=== PATIENT | female | born 1965 | race African-American/Black ===

== ENCOUNTER 2022-01-05 18:38 | Emergency (ER) | payer OTHER, SELFPAY ==
[2022-01-05] VITALS (23 sets, daily range): BP systolic 115–150; BP diastolic 65–85; PULSE 73–95; RESP 13–25; TEMP 36.1; O2SAT 98–100
--- NOTE | ~2022-01-05 | CT_ITS ---
EXAMINATION: CT abdomen pelvis w con DATE: 01/05/2022 21:16 INDICATION: N/V/D, RUQ/epig/RLQ tend TECHNIQUE: Computed tomography (CT) of the abdomen and pelvis was performed with 100 mL Omnipaque-300 intravenous contrast. Automated exposure control and iterative reconstruction technique were employe d. The dose-length product was 1347.27 mGy-cm. COMPARISON: None. FINDINGS: Lower thorax: Unremarkable Liver: Normal. Biliary/Gallbladder: Gallbladder is normal. No bile duct dilation. Pancreas: No mass or duct dilation. Spleen: Normal. Adrenals:No mass. Kidneys: No mass, stone, or hydronephrosis. GI tract: No small or large bowel dilation. Normal appendix. Mild water density wall thickening in th e ascending colon and descending colon. Mesentery/Peritoneum: No ascites, mass, or free air. Retroperitoneum: No mass. Pelvis: Pelvic organs are within normal limits. Soft Tissues: Soft tissues and body wall unremarkable. Bones: No acute osseous finding. IMPRESSION: Colonic findings may reflect colitis in the appropriate clinical context, likely on an infectious or inflammatory basis. Reviewed, dictated and finalized at location K. IMPRESSION: Colonic findings may reflect colitis in the appropriate clinical context, likel y on an infectious or inflammatory basis.
[2022-01-05 19:05] LABS: Basophils Percent Auto 0.3 % (0.2-1.2); Eosinophils Absolute Auto 0.1 K/mm3 (0-0.3); Eosinophils Percent Auto 3.3 % (0-4.4); Hematocrit 40.1 % (37.0-47.0); Hemoglobin 12.3 g/dL (12.0-15.0); Immature Granulocyte Absolute 0.01 K/mm3 (0.00-0.031); Immature Granulocyte Percent A 0.3 % (0-0.5); Lymphocytes Absolute Auto 1.23 K/mm3 (0.9-3.2); Lymphocytes Percent Auto 40.9 % (18.3-44.2); Mean Corpuscular HGB Conc 30.7 g/dl (32-36); Mean Platelet Volume 9.6 fl (7.4-10.4); Monocytes Absolute Auto 0.5 K/mm3 (0.1-0.6); Monocytes Percent Auto 15.6 % (2.6-8.5); Neutrophils Absolute Auto 1.2 K/mm3 (1.3-6.7); Neutrophils Percent Auto 39.6 % (45.5-73.1); Platelet Count Result 197 k/mm3 (150-375); Red Blood Count 3.97 M/mm3 (4.2-5.4); Red Cell Distribution Width 14.2 % (11.5-14.5)
[2022-01-05 19:42] LABS: Alanine Aminotransferase 24 U/L (6-35); Alkaline Phosphatase 94 U/L (38-126); Anion Gap 5 mmol/L (8-16); Aspartate Amino Transferase 31 U/L (14-36); Bilirubin,Total 0.3 mg/dL (0.2-1.3); Blood Urea Nitrogen 16 mg/dL (7-17); Calcium 8.8 mg/dL (8.4-10.2); Carbon Dioxide 25 mmol/L (22-30); Chloride 109 mmol/L (98-107); Estimated CRCL calculation 63 ml/min; Estimated Glomerular Filt Rate > 60; Glucose 119 mg/dL (65-110); Lipase 72 U/L (23-300); Potassium 3.9 mmol/L (3.4-5.0); Sodium 139 mmol/L (137-145)
--- NOTE | 2022-01-05 20:22 | ECG_ITS ---
Measurements Intervals [place] Rate: 79 P: 59 AK: 139 QRS: 68 QRSD: 78 T: 65 QT: 368 QTc: 423 Interpretive Statements SINUS RHYTHM POSSIBLE LEFT ATRIAL ENLARGEMENT POSSIBLE LEFT VENTRICULAR HYPERTROPHY BORDERLINE ECG Electronically Signed On 01-06-2022 6:14:32 CDT by Yared Bautista D.O.
--- NOTE | 2022-01-05 20:29 | ED.NAVMDI ---
HPI - Nausea/Vomiting/Diarrhea General Chief complaint: Nausea/Vomiting/Diarrhea <BRANDIE Cabrera Last Filed: 01/06/22 03:50> Stated complaint: diarrhea, black stools <BRANDIE Cabrera Last Filed: 01/06/22 03:50> Time Seen by Provider: 01/05/22 20:03 <BRANDIE Cabrera Last Filed: 01/06/22 03:50> Source: patient <BRANDIE Cabrera Last Filed: 01/06/22 03:50> Mode of arrival: ambulatory <BRANDIE Cabrera Last Filed: 01/06/22 03:50> Limitations: no limitations <BRANDIE Cabrera Last Filed: 01/06/22 03:50> History of Present Illness HPI Narrative: Patient is a 56-year-old female who presents the ED with report of N/V/D. She reports she began to feel unwell on Tuesday with muscle aches. She developed diarrhea that night. She then developed nausea and vomiting yesterday. She has not had any vomiting today, but does report feeling persistently nauseous. She also reports having diffuse ABD cramping, subjective fever with chills and sweats, rhinorrhea, and a mild cough. She did take one capful of Pepto Bismol and noticed her stool being black the next day. Denies any bright red rectal bleeding. Denies any congestion, difficulty breathing. She does mention having intermittent left-sided chest pressure, lasting a few seconds at a time, occurring sporadically, 1 to 2 weeks ago. Denies any chest pain currently. No recent sick contacts or family worse with similar symptoms. She is vaccinated for COVID, but not the flu. Patient was seen at an outside urgent care earlier today and prescribed nausea medicine. She has not picked this up from the pharmacy yet. <BRANDIE Cabrera Last Filed: 01/06/22 03:50> Related Data Allergies/Adverse reactions: Allergies Allergy/AdvReac Type Severity Reaction Status Date / Time No Known Allergies Allergy Unverified 08/11/17 09:25 <BRANDIE Cabrera Last Filed: 01/06/22 03:50> Review of Systems Review of Systems: CONSTITUTIONAL: Reports subjective fever, chills, and sweats. ENT: Reports rhinorrhea. Denies congestion. CARDIOVASCULAR: Reports intermittent left-sided chest pressure. RESPIRATORY: Reports mild cough. Denies dyspnea. GASTROINTESTINAL: Reports diffuse ABD cramping, nausea, vomiting, melena, diarrhea. Denies bright red rectal bleeding. GENITOURINARY: Denies dysuria or hematuria. SKIN: Denies rash or itching. MUSCULOSKELETAL: Reports myalgias. NEUROLOGIC: Denies headache, numbness, or weakness. <Juany Schulte PA-C - Last Filed: 01/06/22 03:50> All systems reviewed & are unremarkable except as noted in HPI and below <Juany Schulte PA-C - Last Filed: 01/06/22 03:50> PMFSH Past Medical History Medical History: Medical History Anxiety Arthritis Depression <Juany Schulte PA-C - Last Filed: 01/06/22 03:50> Surgical History Surgical History: Surgical History (Updated 01/05/22 @ 23:26 by Juany cShulte PA-C) No pertinent past surgical history <Juany Schulte PA-C - Last Filed: 01/06/22 03:50> Social History Social History: Social History (Updated 01/05/22 @ 23:26 by Juany Schulte PA-C) Smoking status: Never smoker <Juany Schulte PA-C - Last Filed: 01/06/22 03:50> Exam Narrative: GENERAL: Well appearing, well-nourished, non-toxic, in no acute distress. HEAD: Normocephalic, atraumatic. THROAT: Pharynx clear, no exudate. MMs moist. NECK: Supple. No adenopathy, no masses. RESPIRATORY: Airway patent, respirations nonlabored. Clear to auscultation bilaterally, no rales, rhonchi, wheezing. CARDIOVASCULAR: Regular rate and rhythm without murmurs, rubs, or gallops. Peripheral pulses 2+ and equal bilaterally. ABDOMINAL: Soft, diffuse tenderness to palpation, worst in epigastric/RUQ regions, nondistended, no hepatosplenomegaly. Normoactive BS. RECTAL: Normal tone. No external or internal hemorrhoids appreciated on ex
[2022-01-05] MEDS: ONDANSETRON INJ 4 MG/2 ML VIAL IV PUSH (20:38)
[2022-01-05] MEDS: SODIUM CHLORIDE 0.9% IV 1,000 ML 999 ML IV CONT (20:38)
[2022-01-05 20:54] LABS: Appearance Urine Slightly Cloudy (Clear); Bilirubin Urine Negative (Negative); Blood Urine Negative (Negative); Color Urine Yellow (Yellow); Glucose Urine UA Negative (Negative); Ketones Urine Trace mg/dL (Negative); Leukocyte Esterase Ur Trace LEU/UL (Negative); Nitrate Urine Negative (Negative); Protein Urine Negative (Negative); Specific Grav Ur >= 1.030 (1.001-1.035); Urobilinogen Urine 0.2 mg/dL (<2.0); pH Urine 5.5 (5.0-9.0)
[2022-01-05 21:00] LABS: Bacteria Urine Trace /hpf; Mucus Urine Rare /lpf; RBC Urine 0-2 /hpf (0-2); Squamous Epithelial Cell Urine Many /hpf (Few); WBC Urine 0-3 /hpf
[2022-01-05 21:03] LABS: Add Urine Microscopic? YES
[2022-01-05 21:04] LABS: Troponin I < 0.012 ng/mL (0.000-0.034)
[2022-01-05 21:27] LABS: Influenza A QL RT-PCR Negative (Negative); Influenza B QL RT-PCR Negative (Negative); SARS-CoV-2 RNA PCR Negative
== END 2022-01-05 23:23 | disposition home or self-care (01) ==
PROVIDERS: Emergency Medicine; Physician Assistant; Emergency Provider Emergency Medicine; PCP Physician Assistant
DX: K52.9 Noninfective gastroenteritis and colitis, unspecified (principal); D72.819 Decreased white blood cell count, unspecified; Z20.822 Contact with and (suspected) exposure to COVID-19; M19.90 Unspecified osteoarthritis, unspecified site; R94.31 Abnormal electrocardiogram [ECG] [EKG]
CPT/HCPCS: 36415; 74177; 80053; 81001; 83690; 84484; 85025; 87502; 93005; 96361; 96374; 99284; C9803; J2405; J7030; Q9967; U0003; U0005

== ENCOUNTER 2022-02-03 06:29 | Observation (INO) | payer OTHER, SELFPAY ==
[2022-02-03] VITALS (25 sets, daily range): BP systolic 116–150; BP diastolic 64–96; PULSE 66–84; RESP 16–27; TEMP 36.3; O2SAT 99–100
--- NOTE | 2022-02-03 | ECHO_ITS ---
Patient Info Name: Grace Norris Age: 56 years : 1965 Gender: Female Ht: 66 in Wt: 248 lbs BSA: 2.34 m2 HR: 75 bpm BP: 139 / 77 mmHg Heart Rhythm: Sinus Rhythm Technical Quality: Fair Exam Date: 02/03/2022 4:38 PM Exam Location: [facility] Patient Status: Inpatient Admit Date: 02/03/2022 Staff Ordering Physician: Franklyn Boyce Hadoop Infrastructure Architect: Shira Marc RDCS Attending Provider: Sharon Abad DO Referring Physician: Austen WARD; Exam Type: CA echo dop color flow w con Study Info Indications R55 - Syncope and collapse Complete two-dimensional, color flow and Doppler transthoracic echocardiogram is performed with contrast to opacify the left ventricle and to improve the deliniation of the left ventricle endocardial borders. Contrast/Agitated Saline Contrast/Ag. Saline: Definity Amount: 3.00 ml Administered By: Shira Marc RDCS Existing IV Access: Yes IV Access Condition: patent with no signs of infiltration Summary 1. Left ventricular chamber dimension is normal. 2. Left ventricular systolic function is normal, estimated at 65-70%. 3. There is no increased left ventricular wall thickness. 4. The left ventricular diastolic function is grade I diastolic dysfunction. 5. There is mild tricuspid valve regurgitation. 6. No pulmonary hypertension, estimated pulmonary arterial systolic pressure is 25 mmHg. 7. There is trace mitral valve regurgitation. 8. There is no aortic valve stenosis. Left Ventricle Left ventricular chamber dimension is normal. Left ventricular systolic function is normal, estimated at 65-70%. There is no increased left ventricular wall thickness. The left ventricular diastolic function is grade I diastolic dysfunction. Right Ventricle Right ventricular chamber dimension is normal. Right ventricular systolic function is normal. Left Atria Left atrial chamber dimension is normal. Right Atria Right atrial chamber dimension is normal. Aortic Valve The aortic valve is trileaflet. There is no aortic valve stenosis. There is no aortic valve regurgitation. Pulmonic Valve The pulmonic valve is normal. There is mild pulmonic regurgitation. Mitral Valve The mitral valve has thickened leaflets. There is trace mitral valve regurgitation. Tricuspid Valve The tricuspid valve leaflets are normal. There is mild tricuspid valve regurgitation. No pulmonary hypertension, estimated pulmonary arterial systolic pressure is 25 mmHg. Pericardium/Pleural The pericardium appears normal. There is no pericardial effusion. Inferior Vena Cava Normal inferior vena cava with >50% collapse upon inspiration consistent with normal right atrial pressure, 5 mmHg. Aorta The aortic root size at the sinus of Valsalva is normal. The prox ascending aorta size is normal. There is mild aortic atherosclerosis. Left Ventricular Outflow Tract Name Value Normal LVOT 2D LVOT Diameter 1.97 cm LVOT Doppler LVOT Peak Gradient 5 mmHg LVOT Mean Gradient 2 mm
--- NOTE | ~2022-02-03 | XR_ITS ---
EXAMINATION: XR chest 1V DATE: 02/03/2022 07:28 INDICATION: Syncope. TECHNIQUE: A single frontal view of the chest was obtained. COMPARISON: Chest 2 views 08/11/2017 FINDINGS: The chest demonstrates clear lungs without pneumonia, pleural effusion, or pneumothorax. Th e heart size is normal. There are surgical clips in left axilla. IMPRESSION: 1. No acute cardiopulmonary disease. Reviewed, dictated and finalized at location A.
--- NOTE | ~2022-02-03 | XR_ITS ---
EXAMINATION: XR knee RT 3V DATE: 02/04/2022 13:26 INDICATION: Right knee pain. TECHNIQUE: 4 views of right knee were obtained. COMPARISON: None. FINDINGS: Bone alignment is normal. No fracture. There is mild tricompartmental osteoarthritis. There is a small knee joint effusion with loose body. There is a loose body in a Adame's cyst. IMPRESSION: 1. Mild right knee osteoarthritis. 2. Small right knee joint effusion with loose body. Reviewed, dictated and finalized at location A.
--- NOTE | ~2022-02-03 | US_ITS ---
EXAMINATION:US venous doppler LE RT INDICATION:Right leg pain TECHNIQUE: Multiple grayscale, color flow and Doppler images of the right lower extremity deep venous systems were obtained and reviewed. COMPARISON:No prior studies for comparison. FINDINGS: The common femoral, superficial femoral and popliteal veins demonstrate normal respiratory variation, augmentation and compressibility. Color flow is also seen within the posterior tibial, pe roneal, greater saphenous and profunda veins. There is a Adame's cyst measuring 3.9 x 1.5 x 0.7 cm IMPRESSION: 1: No lower extremity deep venous thrombosis. Reviewed, dictated and finalized at location A.
--- NOTE | ~2022-02-03 | US_ITS ---
EXAMINATION: US carotid duplex BI DATE: 02/03/2022 17:54 INDICATION: Syncope. TECHNIQUE: Grayscale, color Doppler, and pulsed Doppler images of the cervical carotid arteries were obtained. The degree of vessel stenosis is placed in one of the following categories: normal, <50%, 5 0-69%, >=70% but less than near-occlusion, near-occlusion, or total occlusion. Note that percent sten osis relative to normal distal artery lumen diameter is indirectly measured from velocity measurement s as described by Mario, et al. Radiology 2003; 229:340-346. COMPARISON: Neck CT 02/03/2022 FINDINGS: RIGHT: The right common carotid artery (CCA) peak systolic velocity (PSV) is 79 cm/s. The right internal car otid artery (ICA) PSV is 177 cm/s. The right ICA end-diastolic velocity (EDV) is 51 cm/s. The right I CA/CCA PSV ratio is 22. Grayscale and color Doppler images yield an estimate of >=50% diameter reduct ion from plaque in the ICA. There is antegrade flow in the right vertebral artery. LEFT: The left CCA PSV is 85 cm/s. The left ICA PSV is 94 cm/s. The left ICA EDV is 25 cm/s. The left ICA/C CA PSV ratio is 1.1. Grayscale and color Doppler images yield an estimate of <50% diameter reduction from plaque in the ICA. There is antegrade flow in the left vertebral artery. IMPRESSION: 1. 50-69% stenosis in the right internal carotid artery. 2. <50% stenosis in the left internal carotid artery. Reviewed, dictated and finalized at location A.
--- NOTE | ~2022-02-03 | CT_ITS ---
EXAMINATION: CT brain wo con DATE: 02/03/2022 07:23 INDICATION: Headache. Dizziness. Near syncope. TECHNIQUE: Computed tomography (CT) of the head was performed without intravenous contrast. The mA wa s adjusted according to patient size. Iterative reconstruction technique was employed. The dose-lengt h product was 605.33 mGy-cm. COMPARISON: None FINDINGS: There is no intracranial hemorrhage, acute infarction, or abnormal intracranial mass lesion . There are scattered areas of low attenuation in the cerebral white matter. The ventricles are yaima l in size. There is mild mucosal thickening in the ethmoid sinuses. The mastoid air cells are normal. The orbits are normal. IMPRESSION: 1. Mild nonspecific cerebral white matter disease, which likely represents chronic small vessel ische morgan disease. Reviewed, dictated and finalized at location A. IMPRESSION: 1. 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
--- NOTE | ~2022-02-03 | XR_ITS ---
EXAMINATION: XR hip RT 2V w AP pelvis DATE: 02/03/2022 12:30 INDICATION: Sudden onset right lower limb pain. TECHNIQUE: Anteroposterior view of the pelvis and anteroposterior and frog-leg lateral views of the r ight hip were obtained. COMPARISON: CT dated 01/05/2022 FINDINGS: Bone alignment is normal. No fracture or suspected avascular necrosis. Decreased right femoral head n constantine offset. Bilateral hip joint spaces appear relatively preserved with tiny marginal osteophytes abo ut the femoral heads consistent with minimal osteoarthritis. Enthesophytes at the anterior iliac spin es and at the bilateral greater trochanters. Moderate to severe spondylosis at the lumbosacral juncti on better appreciated on prior CT. Large amount of excreted contrast material in the bladder and visu alized bilateral lower ureters likely resulting from the earlier contrast-enhanced brain and carotid CT angiogram. IMPRESSION: 1. Minimal bilateral hip osteoarthritis. No acute osseous abnormality. Reviewed, dictated and finalized at location A.
--- NOTE | ~2022-02-03 | MR_ITS ---
EXAMINATION: MR brain/brain stem wo con DATE: 02/04/2022 07:03 INDICATION: Syncope. Cerebral vascular accident. TECHNIQUE: Magnetic resonance imaging (MRI) of the brain and brainstem was performed without intraven ous contrast. COMPARISON: Head CT 02/03/2022 FINDINGS: There are scattered areas of nonspecific increased T2-weighted signal intensity in the cere bral white matter. There is no intracranial hemorrhage, acute infarction, or abnormal intracranial ma ss lesion. The ventricles are normal in size. The paranasal sinuses are clear. The orbits are normal. The mastoid air cells are normal. IMPRESSION: 1. Mild nonspecific cerebral white matter disease, which likely represents chronic small vessel ische morgan disease. Reviewed, dictated and finalized at location A. IMPRESSION: 1. Mild nonspecific cerebral white matter disease, which likely represents lining closer jimmy small vessel ischemic disease.
--- NOTE | ~2022-02-03 | CT_ITS ---
EXAMINATION: CT lumbar spine wo con DATE: 02/03/2022 12:06 INDICATION: Low back pain. Right foot numbness. TECHNIQUE: Computed tomography (CT) of the lumbar spine was performed without intravenous contrast. A utomated exposure control and iterative reconstruction technique were employed. The dose-length produ ct was 1275.45 mGy-cm. COMPARISON: None FINDINGS: There is 5 degrees levocurvature of lumbar spine. Vertebral body heights are normal. There is mildly decreased disc height at L3-L4 and moderately decreased disc height at L5-S1. Osseous centr al spinal canal is developmentally small in lumbar spine. The following disc levels are specifically discussed: L1-L2: The disc does not extend beyond the endplate margin. There is severe bilateral facet joint ost eoarthritis. There is no neural foraminal stenosis. There is no central canal stenosis. L2-L3: The disc is bulging. There is severe bilateral facet joint osteoarthritis. There is mild bilat eral neural foraminal stenosis. There is mild central canal stenosis. L3-L4: The disc is bulging. There is severe bilateral facet joint osteoarthritis. There is mild bilat eral neural foraminal stenosis. There is mild central canal stenosis. L4-L5: The disc is bulging. There is severe bilateral facet joint osteoarthritis. There is mild bilat eral neural foraminal stenosis. There is mild central canal stenosis. L5-S1: The disc is bulging. There is severe bilateral facet joint osteoarthritis. There is mild right and moderate left neural foraminal stenosis. There is mild central canal stenosis. IMPRESSION: 1. Moderate lower lumbar spondylosis. Reviewed, dictated and finalized at location A.
--- NOTE | ~2022-02-03 | CT_ITS ---
EXAMINATION: CTA brain carotid DATE: 02/03/2022 10:05 INDICATION: Presyncope. TECHNIQUE: Computed tomographic angiography (CTA) of the head was performed with 100 mL Omnipaque-350 intravenous contrast. CTA of the neck was performed with intravenous contrast. Automated exposure co ntrol and iterative reconstruction technique were employed. The dose-length product was 1074.64 mGy-c m. Maximum intensity projection and volume rendered 3D-reconstructions were created by the [employer] on a separate workstation. COMPARISON: Head CT 02/03/2022 FINDINGS: HEAD CTA: There are scattered areas of low attenuation in the cerebral white matter. There is no intr acranial hemorrhage, acute infarction, or abnormal intracranial mass lesion. The ventricles are yaima l in size. There is mild mucosal thickening in the paranasal sinuses. The mastoid air cells are yaima l. The orbits are normal. Left vertebral artery is dominant. There is no significant stenosis of basi lar artery or the posterior cerebral arteries. There is no significant stenosis of the intracranial i nternal carotid arteries or anterior or middle cerebral arteries. Anterior communicating artery is no rmal. The posterior communicating arteries are normal. There is no aneurysm. NECK CTA: There are no pathologically enlarged lymph nodes. There is no significant stenosis of the v ertebral arteries. There is plaque in the proximal internal carotid arteries. There is 64% stenosis o f the proximal right internal carotid artery relative to normal distal artery lumen diameter (NASCET criteria). There is 0% stenosis of the proximal left internal carotid artery relative to normal dista l artery lumen diameter. There is severe cervical spondylosis. IMPRESSION: 1. Mild nonspecific cerebral white matter disease, which likely represents chronic small vessel ische morgan disease. 2. No aneurysm or significant intracranial internal stenosis. 3. 64% stenosis of the proximal right internal carotid artery relative to normal distal artery lumen diameter (NASCET criteria). 4. 0% stenosis of the proximal left internal carotid artery relative to normal distal artery lumen di ameter. Reviewed, dictated and finalized at location A. IMPRESSION: 1. 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 2. No aneurysm or significant intracranial internal stenosis. 3. 64% stenosis of the proximal right internal carotid artery relative to ayima l distal artery lumen diameter (NASCET criteria). 4. 0% stenosis of the proximal left internal carotid artery relative to normal distal artery lumen diameter.
--- NOTE | ~2022-02-03 | MR_ITS ---
EXAMINATION: MR knee RT wo con DATE: 02/04/2022 15:50 INDICATION: Right knee pain. Right knee joint effusion. TECHNIQUE: Magnetic resonance imaging (MRI) of the right knee was performed without intravenous contr ast. Sequences included axial PD-weighted FS FSE, coronal PD-weighted FSE and PD-weighted FS FSE, sag ittal PD-weighted FSE, and sagittal T2-weighted FS FSE. COMPARISON: Right knee radiographs 02/04/2022 FINDINGS: Medial compartment: There is an upper surface horizontal tear of posterior horn of medial meniscus. There is shallow part ial-thickness cartilage loss of tibial condyle and femoral condyle. Osteophytes are noted. There is a n intraosseous ganglion in medial tibial condyle posteriorly. Lateral compartment: Lateral meniscus is normal. There is cartilage surface irregularity of tibial condyle and femoral con dyle. Osteophytes are noted. Patellofemoral compartment: There is full-thickness cartilage loss of patellar lateral facet with mild subchondral edema-like mar row signal intensity. There is deep cartilage fissuring of patellar medial facet. There is full-thick ness cartilage loss of lateral trochlea with mild subchondral edema-like marrow signal intensity. The re is partial-thickness cartilage loss of central and medial trochlea. Osteophytes are noted. Ligaments and tendons: The anterior and posterior cruciate ligaments are normal. There are changes of prior sprains of media l collateral ligament and fibular collateral ligament characterized by thickening and increased signa l intensity proximally. There is mild patellar tendinopathy. Fluid: There is a small knee joint effusion. There is a 14 mm loose body in suprapatellar bursa. There is an 11 mm loose body in the anterior intercondylar notch. There is a moderate-sized Adame's cyst with lo ose body. There is a 2.3 x 0.8 x 0.9 cm ganglion cyst in Hoffa's fat pad medially. IMPRESSION: 1. Severe chondrosis of patellofemoral compartment and mild chondrosis of medial and lateral compartm ents. 2. Tear of medial meniscus. 3. Small knee joint effusion with loose bodies. 4. Moderate-sized Adame's cyst with loose body. Reviewed, dictated and finalized at location A. IMPRESSION: 1. Severe chondrosis of patellofemoral compartment and mild chondrosis of media l and lateral compartments. 2. Tear of medial meniscus. 3. Small knee joint effusion with loose bodies. 4. Moderate-sized Adame's cyst with loose body.
--- NOTE | 2022-02-03 06:46 | ECG_ITS ---
Measurements Intervals [place] Rate: 75 P: 47 OR: 154 QRS: 56 QRSD: 81 T: 53 QT: 372 QTc: 416 Interpretive Statements SINUS RHYTHM WITH OCCASIONAL SUPRAVENTRICULAR PREMATURE COMPLEXES BORDERLINE ECG COMPARED TO ECG 01/05/2022 20:42:08 NO SIGNIFICANT CHANGES Electronically Signed On 02-03-2022 12:42:00 CDT by Mike Cabral M.D.
--- NOTE | 2022-02-03 07:21 | ED.GENADULT ---
HPI - General Adult General Chief complaint: Unspecified Stated complaint: R LEG PAIN, NAUSEA, NEAR SYNCOPE Time Seen by Provider: 02/03/22 07:02 Source: RN notes reviewed History of Present Illness HPI narrative: Patient presents emergency department from home for multiple complaints. Patient states that this morning she had gotten up and was feeling well states she gone to use restroom she states that she was trying to stand up from the restroom she had sudden severe pain in her right leg is located behind the right thigh she states that this caused her to bend over in pain and then for approximately 2 minutes she was unable to move at all she states that with this she felt dizzy like she was going to pass out and since then has felt dizzy and mildly confused she states that she has had some numbness in her right foot located more in her right first and second toe since this episode she states she does have some numbness in her right hand but that numbness in her right hand has been present for the past 1 month she states that she was nauseous with the episode but she denies having any vision changes chest pain shortness of breath vomiting or diarrhea. Patient states that she was having some dizziness upon awaking this morning states that no known dizziness last night Related Data Home Medications Medication Instructions Recorded Confirmed bupropion HCl 300 mg 24 hr tablet, 300 mg PO DAILY 02/03/22 02/03/22 extended release clonazepam 1 mg tablet 1 mg PO DAILY 02/03/22 02/03/22 venlafaxine 75 mg capsule,extended 75 mg PO DAILY 02/03/22 02/03/22 release 24 hr Allergies Allergy/AdvReac Type Severity Reaction Status Date / Time No Known Allergies Allergy Unverified 08/11/17 09:25 Review of Systems Review of Systems: Gen.: Denies fevers or chills ENT: Denies congestion Respiratory: Denies shortness of breath or cough CV: Ports near syncope GI: Denies abdominal pain emesis or diarrhea reports nausea Musculoskeletal: Denies back pain reports right leg pain Neuro: See HPI Skin: Denies rash Except as documented, all other systems reviewed and negative PMFSH Past Medical History Medical History Anxiety Arthritis Depression Surgical History Surgical History H/O left mastectomy No pertinent past surgical history Family History Family History Father Throat cancer Mother Hypertension Diabetes mellitus Multiple myeloma Social History Social History Social History: Patient is currently with her fianc? and her sister Debby would be her surrogate. She stated that she has no pets and she has [address] She works at [employer] in her eyes. She wishes to be a full code at this time. Smoking status: Never smoker Alcohol intake: never Substance use: never Living arrangements: with family Occupation/Education: occupation Additional occupation/education comments: [employer] Gender identity (if verbalized by the patient): Female Sexual Orientation (if Verbalized by the Patient): Straight or Heterosexual Spiritual care concerns: No Agree to blood products: Yes Exam Narrative: APPEARANCE: No acute distress, nontoxic, resting in bed HEENT: Normocephalic, atraumatic, OMM, TMs clear bilaterally EYES: PERRL, EOMI NECK: Supple, nontender, full range of motion without pain, no meningismus RESPIRATORY: No respiratory distress, clear to auscultation bilaterally with no rhonchi wheezing or rales CARDIOVASCULAR: RRR s murmur ABDOMINAL: Soft, nontender, nondistended MUSCULOSKELETAL: Moves all extremities. No clubbing, cyanosis or edema. Full flexion-extension of all 5 MCP and IP joints of the right hand no tenderness of the wrist or hand radial pulse 2+ neurovasc
[2022-02-03] MEDS: SODIUM CHLORIDE 0.9% IV 1,000 ML 999 ML IV CONT (07:51)
[2022-02-03 07:57] LABS: Basophils Percent Auto 0.9 % (0.2-1.2); Eosinophils Absolute Auto 0.1 K/mm3 (0-0.3); Eosinophils Percent Auto 3.6 % (0-4.4); Hematocrit 38.8 % (37.0-47.0); Hemoglobin 11.8 g/dL (12.0-15.0); Lymphocytes Absolute Auto 1.26 K/mm3 (0.9-3.2); Lymphocytes Percent Auto 37.5 % (18.3-44.2); Mean Corpuscular HGB Conc 30.4 g/dl (32-36); Mean Corpuscular Hemoglobin 31.1 pg (26-34); Mean Corpuscular Volume 102.4 fl (80-100); Mean Platelet Volume 9.9 fl (7.4-10.4); Monocytes Absolute Auto 0.3 K/mm3 (0.1-0.6); Monocytes Percent Auto 10.1 % (2.6-8.5); Neutrophils Absolute Auto 1.6 K/mm3 (1.3-6.7); Neutrophils Percent Auto 47.9 % (45.5-73.1); Platelet Count Result 167 k/mm3 (150-375); Red Blood Count 3.79 M/mm3 (4.2-5.4); Red Cell Distribution Width 14.4 % (11.5-14.5); White Blood Count 3.4 K/mm3 (4.5-10.0)
[2022-02-03 08:03] LABS: Appearance Urine Clear (Clear); Bilirubin Urine Negative (Negative); Blood Urine Negative (Negative); Color Urine Yellow (Yellow); Glucose Urine UA Negative (Negative); Ketones Urine Negative (Negative); Leukocyte Esterase Ur Negative LEU/UL (Negative); Nitrate Urine Negative (Negative); Protein Urine Negative (Negative)
[2022-02-03 08:04] LABS: Add Urine Microscopic? NO
[2022-02-03 08:08] LABS: Alanine Aminotransferase 14 U/L (6-35); Albumin Level 4.1 g/dL (3.5-5.1); Alkaline Phosphatase 82 U/L (38-126); Anion Gap 8 mmol/L (8-16); Aspartate Amino Transferase 27 U/L (14-36); Bilirubin,Total 0.6 mg/dL (0.2-1.3); Blood Urea Nitrogen 16 mg/dL (7-17); Calcium 8.6 mg/dL (8.4-10.2); Carbon Dioxide 29 mmol/L (22-30); Chloride 102 mmol/L (98-107); Creatine Kinase 147 U/L (30-135); Estimated CRCL calculation 96 ml/min; Estimated Glomerular Filt Rate > 60; Glucose 109 mg/dL (65-110); Potassium 3.9 mmol/L (3.4-5.0); Sodium 139 mmol/L (137-145)
[2022-02-03 08:09] LABS: Prothrombin Time 12.5 Seconds (11.1-14.7)
[2022-02-03 08:10] LABS: Partial Thromboplastin Time 22.2 SECONDS (22.3-36.8)
[2022-02-03 08:12] LABS: Lipase 44 U/L (23-300)
[2022-02-03 08:20] LABS: Troponin I < 0.012 ng/mL (0.000-0.034)
--- NOTE | 2022-02-03 09:48 | PC.NURSE ---
pt. to ct
[2022-02-03] MEDS: MECLIZINE HCL 25 MG TABLET PO (10:10)
[2022-02-03] MEDS: KETOROLAC 30 MG/ML VIAL (*BKC) IV PUSH (10:52)
--- NOTE | 2022-02-03 13:50 | ADMGEN ---
This patient, Grace Norris, was admitted to Medical Room 256-. Patient/family oriented to hospital policies and general routines including ID bracelet, bed and alarms, visiting hours, pain management, procedures, bathroom and other care routines, personal items, smoking policy, room service/diet, and visiting hours. Information on how to activate the Rapid Response Team has been discussed. Patient/Family are encouraged to report perceived risks to care and to ask questions if they do not understand what they are told or what they should do.
[2022-02-03] MEDS: ASPIRIN 81 MG CHEWABLE TABLET 324 MG PO (15:03)
--- NOTE | 2022-02-03 15:51 | PM.IMHP ---
H&P: HPI History of Present Illness Date/Time: 02/03/22 15:30 Chief Complaint: Right leg pain with weakness Narrative: Patient is a 56-year-old female with a past medical history of anxiety and depression who presented the ED with right leg pain. Patient stated that when she got up this morning she felt really lightheaded especially when she stood up. She also stated that her toes are numb her hand is numb and was having some confusion and dizziness with sweats. Patient also stated that for while she has been confused for eating little things and remember things however today was much worse. She stated that she was able to get herself back to bed and laid down which did help a little bit. She states that she still has a headache and she still lightheaded with dizziness. She has been nauseated. CTA of the head and neck did show 69% stenosis in right carotid artery. Patient did say that the episode lasted about 3 minutes and she is also stated that her leg was so severe that she was unable to place weight or stand on it at all. She denies any chest pain, shortness and breath, vomiting, abdominal pain, sweats, fevers, chills. Patient also reports that she does a lot of sitting and working from home for her first job. She did mention that she is concerned about clots in her leg. Calf was soft and nontender. Patient is being admitted to the hospital service under observation Review of Systems Review of Systems: All systems reviewed & are unremarkable except as noted in HPI and below PMFSH Past Medical History Medical History Anxiety Arthritis Depression Surgical History Surgical History H/O left mastectomy No pertinent past surgical history Family History Family History Father Throat cancer Mother Hypertension Diabetes mellitus Multiple myeloma Social History Social History (Updated 02/03/22 @ 16:00 by IMANI Shaffer) Social History: Patient is currently with her fianc? and her sister Debby would be her surrogate. She stated that she has no pets and she has [address] She works at [employer] in her [place]. She wishes to be a full code at this time. Smoking status: Never smoker Alcohol intake: never Substance use: never Living arrangements: with family Occupation/Education: occupation Additional occupation/education comments: [employer] Gender identity (if verbalized by the patient): Female Sexual Orientation (if Verbalized by the Patient): Straight or Heterosexual Spiritual care concerns: No Agree to blood products: Yes Meds Home Medications and Allergies Home Medications Medication Instructions Recorded Confirmed Type bupropion HCl 300 mg 24 hr tablet, 300 mg PO DAILY 02/03/22 02/03/22 History extended release clonazepam 1 mg tablet 1 mg PO DAILY 02/03/22 02/03/22 History venlafaxine 75 mg capsule,extended 75 mg PO DAILY 02/03/22 02/03/22 History release 24 hr Allergies Allergy/AdvReac Type Severity Reaction Status Date / Time No Known Allergies Allergy Unverified 08/11/17 09:25 Vital Signs Vital Signs - 24 hr 02/03/22 06:38 02/03/22 07:04 02/03/22 07:44 Temperature 97.3 F L Pulse Rate 72 70 76 Respiratory Rate 16 Blood Pressure 137/80 124/65 Pulse Oximetry 100 02/03/22 07:46 02/03/22 07:49 02/03/22 07:59 Temperature Pulse Rate 76 84 71 Respiratory Rate 20 Blood Pressure 136/78 129/71 116/74 Pulse Oximetry 100 02/03/22 07:30 02/03/22 07:39 02/03/22 07:45 Temperature Pulse Rate 71 68 76 Respiratory Rate 18 17 Blood Pressure 120/68 Pulse Oximetry 100 02/03/22 07:47 02/03/22 07:48 02/03/22 08:00 Temperature Pulse Rate 72 74 71 Respiratory Rate 18 27 H Blood Pressure 136/78 129/71 139/91 H Pulse Oximetry
[2022-02-03] MEDS: PERFLUTREN LIPID MICROSPHERES 1.5 ML VIAL DILUTED TO 10 ML TOTAL VOLUME IV PUSH (16:30)
--- NOTE | 2022-02-03 17:06 | IVDEFINITY ---
Prior to administration of IV Definity the patient was educated on the risks and benefits of the imaging enhancing agent including potential adverse side effects. The patient verbalized understanding. Allergies were verified. No exclusion criteria were identified and at least one of the following inclusion criteria were met: 1) physician request, 2) patient technically difficult to image (per the [place] [employer] Echocardi[employer] guidelines of two or more segments not discernable within the apical view), or 3) questionable left ventricular function. ?
[2022-02-03 18:00] LABS: Troponin I < 0.012 ng/mL (0.000-0.034)
[2022-02-03 19:26] LABS: Troponin I < 0.012 ng/mL (0.000-0.034)
[2022-02-03] MEDS: MORPHINE SULFATE (*CRX) 2 MG/ML INJ IV PUSH (19:50)
[2022-02-04] VITALS (13 sets, daily range): BP systolic 110–144; BP diastolic 58–82; PULSE 65–101; RESP 16–20; TEMP 36–36.8; O2SAT 97–100; BMI 42.3
[2022-02-04] MEDS: HYDROcodone/acetaminophen (*CRX) 5-325 MG TABLET 1 TAB PO ×2 (01:05→07:18)
[2022-02-04 06:39] LABS: Basophils Percent Auto 0.6 % (0.2-1.2); Eosinophils Absolute Auto 0.1 K/mm3 (0-0.3); Eosinophils Percent Auto 4.2 % (0-4.4); Hematocrit 39.9 % (37.0-47.0); Hemoglobin 12.1 g/dL (12.0-15.0); Immature Granulocyte Absolute 0.01 K/mm3 (0.00-0.031); Immature Granulocyte Percent A 0.3 % (0-0.5); Lymphocytes Absolute Auto 1.52 K/mm3 (0.9-3.2); Mean Corpuscular HGB Conc 30.3 g/dl (32-36); Mean Corpuscular Volume 102.3 fl (80-100); Mean Platelet Volume 10.1 fl (7.4-10.4); Monocytes Absolute Auto 0.4 K/mm3 (0.1-0.6); Monocytes Percent Auto 11.3 % (2.6-8.5); Neutrophils Absolute Auto 1.1 K/mm3 (1.3-6.7); Neutrophils Percent Auto 34.6 % (45.5-73.1); Platelet Count Result 176 k/mm3 (150-375); Red Cell Distribution Width 14.2 % (11.5-14.5); White Blood Count 3.1 K/mm3 (4.5-10.0)
[2022-02-04 06:52] LABS: Alanine Aminotransferase 13 U/L (6-35); Albumin Level 3.8 g/dL (3.5-5.1); Alkaline Phosphatase 85 U/L (38-126); Anion Gap 4 mmol/L (8-16); Aspartate Amino Transferase 21 U/L (14-36); Bilirubin,Total 0.7 mg/dL (0.2-1.3); Blood Urea Nitrogen 10 mg/dL (7-17); Calcium 9.1 mg/dL (8.4-10.2); Carbon Dioxide 29 mmol/L (22-30); Chloride 103 mmol/L (98-107); Estimated CRCL calculation 96 ml/min; Estimated Glomerular Filt Rate > 60; Glucose 100 mg/dL (65-110); Potassium 3.5 mmol/L (3.4-5.0); Sodium 136 mmol/L (137-145)
[2022-02-04] MEDS: ASPIRIN 81 MG ENTERIC TABLET PO (08:47)
[2022-02-04] MEDS: clonazePAM (*CRX) 0.5 MG TABLET 1 MG PO (08:48)
[2022-02-04] MEDS: VENLAFAXINE HCL XR 75 MG CAP.ER.24H PO (08:48)
[2022-02-04] MEDS: ENOXAPARIN 40 MG/0.4 ML SYRINGE SUB-Q (08:48)
[2022-02-04] MEDS: ATORVASTATIN 40 MG TABLET PO (08:48)
[2022-02-04] MEDS: buPROPion HCL XL (24 HR) 150 MG TABCR 300 MG PO (08:48)
[2022-02-04] MEDS: KETOROLAC 30 MG/ML VIAL (*BKC) 15 MG IV PUSH (12:37)
[2022-02-04] MEDS: diphenhydrAMINE HCl INJ 50 MG/ML VIAL 25 MG IV PUSH (12:37)
[2022-02-04] MEDS: METOCLOPRAMIDE HCL INJ 10 MG/2 ML VIAL IV PUSH (12:38)
--- NOTE | 2022-02-04 13:41 | PM.IMPN ---
Progress Note: A&P Assessment and Plan (1) Leg pain, right: Code(s): M79.604 - Pain in right leg Status: Acute Assessment and Plan: -chief complaint on arrival was R leg pain, localized to her posterior knee -she was also c/o numbness but when questioned further she tells me it is primarily pain. Was having some R hand numbness also but this has been present for many months -R knee XR w/ effusion, bakers cyst, loose body -check MRI R knee -venous doppler negative for DVT -will try dose of Toradol, Decadron, and Ice pack -also admits to some R low back pain w/ ttp, possible sciatica? Consider MRI L spine. No cauda equina symptoms. -PT evaluation (2) Dizziness: Code(s): R42 - Dizziness and giddiness Status: Acute Assessment and Plan: -sounds like intermittent x months but worse upon admission -has primarily resolved -orthostatics negative -CTA head/neck shows 64% stenosis of R internal carotid - will need outpatient follow up -MRI brain w/ mild non specific cerebral white matter disease, no CVA -check lipid panel -was started on aspirin and atorvastatin on arrival for possible CVA/TIA, will continue for now pending lipid panel but suspicion is low -consider trial of meclizine -chart indicated syncopal episode however patient denies this to me. She states she stood up and got dizzy and had to sit down because the pain in her leg was so bad. No loc. (3) Headache: Code(s): R51.9 - Headache, unspecified Status: Acute Assessment and Plan: -hx of migraines -she has multiple complaints, some of which could be atypical migraine -some relief w/ tylenol but not resolved -will try migraine cocktail -no neuro coverage this week -no focal deficits (4) Anemia: Code(s): D64.9 - Anemia, unspecified Status: Acute Assessment and Plan: H&H on arrival 11.8/38.8 Anemia labs in a.m. (5) Anxiety and depression: Code(s): F41.9 - Anxiety disorder, unspecified; F32.A - Depression, unspecified Status: Acute Assessment and Plan: Continue home meds Subjective Date/time seen: 02/04/22 13:41 Interval history: 56 yo female w/ hx of anxiety and depression admitted for multiple complaints including R leg pain/numbness, dizziness, and headache. Pt states currently she has a headache and R leg pain. The dizziness is better today. Pain in her leg is worst behind her knee. No edema. No cp/sob. 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 Review of Systems Review of Systems: All systems reviewed & are unremarkable except as noted in HPI and below Exam Narrative: General: No acute distress, non toxic appearing, obese Eyes: PERRL, no scleral icterus HEENT: NCAT, external ears normal, MMM Respiratory: No respiratory distress, Lungs CTA bilaterally, no wheezing Cardiovascular: RRR, no murmur Abdominal: Soft, nontender, non distended, no rebound or guarding Musculoskeletal: Moves all 4 extremities, no edema, no calf tenderness, DP/PT pulses 2+ Back: R lumbar paraspinal ttp Neurological: A/Ox3, speech clear, no facial asymmetry, 5/5 strength BUE and BLE Skin: Warm, dry, no rashes Psychiatric: Normal affect, normal mood Objective Data Vital Signs Vital Signs: Vital Signs - 24 hr 02/03/22 14:46 02/03/22 14:24 02/03/22 16:00 Temperature 97.3 F L Pulse Rate 75 82 Respiratory Rate 18 Blood Pressure 139/77 Pulse Oximetry 100 Oxygen Delivery Room Air 02/03/22 20:56 02/03/22 21:17 02/03/22 21:18 Temperature 97.4 F L 97.4 F L Pulse Rate 70 70 Respiratory Rate 16 16 Blood Pressure 142/67 H 142/67 H 142/64 H Pulse Oximetry 99 99 Oxygen Delivery 02/03/22 21:24 02/03/22 21:00 02/03/22 20:00 Temperature Pulse Rate 74 Respiratory Rate Blood Pressure 150/92 H Pulse Oximetry Oxygen Delivery Room Air 02/04/22 00:
[2022-02-05 04:16] VITALS: BP 147/80; PULSE 71; RESP 18; TEMP 35.6; O2SAT 100
[2022-02-05 05:49] LABS: Basophils Percent Auto 0.2 % (0.2-1.2); Hematocrit 41.3 % (37.0-47.0); Hemoglobin 12.9 g/dL (12.0-15.0); Immature Granulocyte Absolute 0.02 K/mm3 (0.00-0.031); Immature Granulocyte Percent A 0.5 % (0-0.5); Lymphocytes Absolute Auto 0.68 K/mm3 (0.9-3.2); Lymphocytes Percent Auto 15.9 % (18.3-44.2); Mean Corpuscular HGB Conc 31.2 g/dl (32-36); Mean Corpuscular Hemoglobin 31.5 pg (26-34); Mean Platelet Volume 10.2 fl (7.4-10.4); Monocytes Absolute Auto 0.2 K/mm3 (0.1-0.6); Neutrophils Absolute Auto 3.4 K/mm3 (1.3-6.7); Neutrophils Percent Auto 79.4 % (45.5-73.1); Platelet Count Result 200 k/mm3 (150-375); Red Blood Count 4.09 M/mm3 (4.2-5.4); Red Cell Distribution Width 13.6 % (11.5-14.5); White Blood Count 4.3 K/mm3 (4.5-10.0)
[2022-02-05 06:00] LABS: Anion Gap 9 mmol/L (8-16); Blood Urea Nitrogen 14 mg/dL (7-17); Calcium 9.2 mg/dL (8.4-10.2); Carbon Dioxide 25 mmol/L (22-30); Chloride 102 mmol/L (98-107); Cholesterol 229 mg/dL (0-200); Estimated CRCL calculation 99 ml/min; Estimated Glomerular Filt Rate > 60; Glucose 138 mg/dL (65-110); HDL Direct 82 mg/dL; Potassium 3.9 mmol/L (3.4-5.0); Sodium 136 mmol/L (137-145); Triglycerides 36 mg/dL (<150)
[2022-02-05 06:11] LABS: LDL Cholesterol Direct 97 mg/dL
[2022-02-05 06:18] LABS: Iron 59 ug/dL (37-170)
[2022-02-05 06:27] LABS: Percent Iron Saturation 21 % (20-50)
[2022-02-05 07:06] LABS: Folic Acid 10.4 ng/mL (2.76->20)
[2022-02-05 08:00] VITALS: BP 128/62
[2022-02-05] MEDS: ASPIRIN 81 MG ENTERIC TABLET PO (08:26)
[2022-02-05] MEDS: ATORVASTATIN 40 MG TABLET PO (08:26)
[2022-02-05] MEDS: VENLAFAXINE HCL XR 75 MG CAP.ER.24H PO (08:27)
[2022-02-05] MEDS: ENOXAPARIN 40 MG/0.4 ML SYRINGE SUB-Q (08:27)
[2022-02-05] MEDS: buPROPion HCL XL (24 HR) 150 MG TABCR 300 MG PO (08:27)
[2022-02-05] MEDS: clonazePAM (*CRX) 0.5 MG TABLET 1 MG PO (08:30)
--- NOTE | 2022-02-05 08:57 | PM.DS ---
DS: Admitting Diagnosis Discharge Date 02/05/22 Admitting Diagnosis leg pain DS: Discharge Diagnosis Discharge Diagnosis (1) Leg pain, right: Code(s): M79.604 - Pain in right leg Status: Acute Assessment and Plan: -chief complaint on arrival was R leg pain, localized to her posterior knee -she was also c/o numbness but when questioned further she tells me it is primarily pain. Was having some R hand numbness also but this has been present for many months -R knee XR w/ effusion, bakers cyst, loose body -MRI knee shows medial meniscus tear, severe chondrosis, joint effusion w/ loose body, and Adame's cyst w/ loose body -venous doppler negative for DVT -signficant relief w/ Toradol, Decadron, and Ice pack -PT evaluation -spoke w/ Dr. Dylon irwin who states his office will call patient for a follow up appointment within the week -will send her home w/ naproxen and recommend ice/elevation until she is able to follow up (2) Dizziness: Code(s): R42 - Dizziness and giddiness Status: Acute Assessment and Plan: -sounds like intermittent x months but worse upon admission -has completely resolved -orthostatics negative -CTA head/neck shows 64% stenosis of R internal carotid - will follow up w/ pcp outpatient -MRI brain w/ mild non specific cerebral white matter disease, no CVA -lipid panel unremarkable -was started on aspirin and atorvastatin on arrival for possible CVA/TIA, will discontinue this as she is generally healthy and I do not suspect she had a TIA, will defer to PCP to restart if indicated -chart indicated syncopal episode however patient denies this to me. She states she stood up and got dizzy and had to sit down because the pain in her leg was so bad. No loc. (3) Headache: Code(s): R51.9 - Headache, unspecified Status: Acute Assessment and Plan: -no focal deficits -hx of migraines -she had multiple complaints on arrival, some of which could be atypical migraine -some relief w/ tylenol -complete resolution w/ migraine cocktail -no neuro coverage this week, can follow up outpatient if symptoms return (4) Anemia: Code(s): D64.9 - Anemia, unspecified Status: Acute Assessment and Plan: H&H on arrival 11.8/38.8, very mild, could be some degree dilutional Normalized today (5) Anxiety and depression: Code(s): F41.9 - Anxiety disorder, unspecified; F32.A - Depression, unspecified Status: Acute Assessment and Plan: Continued home meds DS: Summary Hospital Course Reason for hospitalization: 56 yo female w/ hx of anxiety and depression admitted for multiple complaints including R leg pain/numbness, dizziness, and headache. Please see HPI for further details. Hospital Course: Please see above for details of hospital course. Status at Discharge Cognitive/behavioral status at discharge: stable Functional status at discharge: independent ambulation Overall status at discharge: patient is progressing back to baseline Time Spent with Patient Time attestation: Total time spent providing and/or coordinating discharge services: 40 Time spent: Greater than 30 minutes Exam Narrative: General: No acute distress, non toxic appearing, obese Eyes: PERRL, no scleral icterus HEENT: NCAT, external ears normal, MMM Respiratory: No respiratory distress, Lungs CTA bilaterally, no wheezing Cardiovascular: RRR, no murmur Abdominal: Soft, nontender, non distended, no rebound or guarding Musculoskeletal: Moves all 4 extremities, no edema, no calf tenderness, DP/PT pulses 2+ Back: No ttp Neurological: A/Ox3, speech clear, no facial asymmetry, 5/5 strength BUE and BLE Skin: Warm, dry, no rashes Psychiatric: Normal affect, normal mood DS: Data Data Completed and Pending Labs on day of discharge: Labs from last 24 hours 02/05/22 02/05/22 02/05/22 05:23 05:23 05:23 WBC 4.3 L RBC 4.09 L H
[2022-02-05 10:29] VITALS: BP 137/76
[2022-02-05 10:30] VITALS: BP 122/77
== END 2022-02-05 11:05 | disposition home or self-care (01) ==
LOC: ANHED 07:31 → ANH2MED 13:31
PROVIDERS: Admitting Provider Student in an Organized Health Care Education/Training Program; Emergency Provider Emergency Medicine; PCP Physician Assistant; Visit Provider Physician Assistant
DX: M79.604 Pain in right leg (principal); R42 Dizziness and giddiness; M54.30 Sciatica, unspecified side; R51.9 Headache, unspecified; F41.9 Anxiety disorder, unspecified; F32.A Depression, unspecified; D64.9 Anemia, unspecified; I65.23 Occlusion and stenosis of bilateral carotid arteries; R29.701 NIHSS score 1; M25.461 Effusion, right knee; M71.21 Synovial cyst of popliteal space [Baker], right knee; M23.41 Loose body in knee, right knee; M23.321 Other meniscus derangements, posterior horn of medial meniscus, right knee; M47.896 Other spondylosis, lumbar region; R20.0 Anesthesia of skin; R90.82 White matter disease, unspecified; M16.0 Bilateral primary osteoarthritis of hip; I49.1 Atrial premature depolarization; Z79.899 Other long term (current) drug therapy
CPT/HCPCS: 36415; 70450; 70496; 70498; 70551; 71045; 72131; 73502; 73562; 73721; 80048; 80053; 80061; 81003; 82550; 82607; 82746; 83540; 83550; 83690; 83735; 84484; 85025; 85610; 85730; 93005; 93880; 93971; 96361; 96372; 96374; 96375; 97161; 99285; A9270; C8929; G0378; J0131; J1100; J1200; J1650; J1885; J2270; J2765; J7030; Q9957; Q9967

== ENCOUNTER 2024-03-09 02:10 | Emergency (ER) | payer OTHER, SELFPAY ==
--- NOTE | ~2024-03-09 | XR_ITS ---
AP view of the pelvis and AP and lateral views of the left hip Clinical history: Pain Findings: No acute fracture or dislocation is seen. Osseous alignment is anatomic. Bilateral hip and SI joint spaces are preserved. Soft tissues are unremarkable. Impression: No significant abnormality is seen. Reviewed, dictated and finalized at location . Impression: No significant abnormality is seen.
--- NOTE | ~2024-03-09 | XR_ITS ---
AP and lateral views of the left femur Clinical History: Pain Findings: No acute fracture or dislocation is seen. Osseous alignment is anatomic. Visualized joint s paces are grossly preserved. Soft tissues are unremarkable. Impression: Unremarkable left femoral radiographs. Reviewed, dictated and finalized at location M. Impression: Unremarkable left femoral radiographs.
[2024-03-09 02:16] VITALS: BP 164/79; PULSE 96; RESP 18; TEMP 36.5; O2SAT 100
--- NOTE | 2024-03-09 03:47 | ED.EXTPRO ---
HPI - Extremity Problem General Chief complaint: Extremity Problem,Nontraumatic Stated complaint: Nontraumatic L hip to thigh, nausea Time Seen by Provider: 03/09/24 03:16 History of Present Illness HPI Narrative: 58-year-old female present to the emergency department for evaluation for left leg pain that is been ongoing for proximal left month. Patient has been following up with primary care physician was started naproxen but does not feel this is helping. Patient describes left hip pain that radiates down the left leg. Related Data Home Medications Medication Instructions Recorded Confirmed bupropion HCl 300 mg 24 hr tablet, 300 mg PO DAILY 02/03/22 02/08/22 extended release venlafaxine 75 mg capsule,extended 75 mg PO DAILY 02/03/22 02/08/22 release 24 hr clonazepam 1 mg tablet 1 mg PO BID 02/08/22 02/08/22 Allergies Allergy/AdvReac Type Severity Reaction Status Date / Time No Known Allergies Allergy Verified 03/09/24 03:35 Review of Systems Review of Systems: All systems reviewed & are unremarkable except as noted in HPI and below PMFSH Past Medical History Medical History Anxiety Arthritis Depression Surgical History Surgical History H/O left mastectomy 2016 No pertinent past surgical history Family History Family History Father Throat cancer Mother Hypertension Diabetes mellitus Multiple myeloma Sibling Cancer Diabetes mellitus Hypertension Other Cancer Hypertension Grandparent Heart disease Son Depression Social History Social History Social History: Patient is currently with her fipete? and her sister Debby would be her surrogate. She stated that she has no pets and she has [address] She works at [employer] in her [place]. She wishes to be a full code at this time. Smoking status: Never smoker Alcohol intake: never Substance use: never Living arrangements: alone Occupation/Education: occupation Additional occupation/education comments: [employer] and [employer] Gender identity (if verbalized by the patient): Female Sexual Orientation (if Verbalized by the Patient): Straight or Heterosexual Spiritual care concerns: No Agree to blood products: Yes Exam Narrative: APPEARANCE: Well appearing, no pain, no distress, well-nourished. HEAD: normocephalic, atraumatic. EYES: PERRLA/EOMI, conjunctivae clear. NOSE: Normal no drainage EARS:TMS clear with good light reflex. THROAT: Pharynx clear, no exudate. NECK: Supple. No adenopathy, no masses. RESPIRATORY: Airway patent, respirations nonlabored. Clear to auscultation bilaterally, no rales, rhonchi, wheezing. CARDIOVASCULAR: Regular rate and rhythm without murmurs rubs or gallops. ABDOMINAL: Soft, nontender, nondistended, normal bowel sounds MUSCULOSKELETAL: Left buttock tenderness, positive straight leg NEURO: Alert. Cranial nerves II through XII intact. Good gait. Good coordination SKIN: Warm, dry. Normal Color Course Course Emergency Course: Patient was provided medications for pain control and steroids to help with her sciatica. Vital Signs Vital signs: Vital Signs Temperature 97.7 F 03/09/24 02:16 Pulse Rate 96 03/09/24 02:16 Respiratory Rate 18 03/09/24 02:16 Blood Pressure 164/79 H 03/09/24 02:16 Pulse Oximetry 100 03/09/24 02:16 Oxygen Delivery Room Air 03/09/24 02:16 Temperature 97.7 F 03/09/24 02:16 Pulse Rate 73 03/09/24 04:25 Respiratory Rate 16 03/09/24 04:25 Blood Pressure 160/84 H 03/09/24 04:25 Pulse Oximetry 100 03/09/24 04:25 Oxygen Delivery Room Air 03/09/24 02:16 MDM - Extremity (Nontraumatic) MDM Narrative Medical decision making narrative: 58-year-old female present to the emerg
[2024-03-09] MEDS: CYCLOBENZAPRINE HCL 10 MG TABLET PO (04:19)
[2024-03-09] MEDS: dexAMETHasone SOD PHOS INJ 10 MG/ML 1 ML VIAL IV PUSH (04:19)
[2024-03-09] MEDS: HYDROmorphone HCL INJ (*CRX) 1 MG/ML SYR IV PUSH (04:19)
[2024-03-09 04:25] VITALS: BP 160/84; PULSE 73; RESP 16; O2SAT 100
== END 2024-03-09 04:50 | disposition home or self-care (01) ==
PROVIDERS: Emergency Provider Emergency Medicine
DX: M54.32 Sciatica, left side (principal); F41.8 Other specified anxiety disorders
CPT/HCPCS: 73502; 73552; 96374; 96375; 99284; A9270; J1100; J1170

== ENCOUNTER 2024-03-29 14:23 | Outpatient (CLI) | payer OTHER, SELFPAY ==
--- NOTE | ~2024-03-29 | XR_ITS ---
3 VIEWS LUMBAR SPINE Ordering provider: Rosetta Woodruff, [employer] History: . Other low back pain . Comparison: None. FINDINGS: VERTEBRAL BODIES:Mild levoscoliosis. No visible fracture or subluxation. Degenerative changes of the spine. DISK SPACES: Narrowing of the disc L5-S1. SOFT TISSUES: Normal. IMPRESSION: No acute osseous abnormality lumbar spine. Mild levoscoliosis. Degenerative disc disease at the level of L5-S1 Reviewed, dictated and finalized at location A.
== END 2024-03-29 14:24 | disposition home or self-care (01) ==
LOC: MICIMG 14:26
PROVIDERS: Visit Provider Nurse Practitioner Family
DX: M41.87 Other forms of scoliosis, lumbosacral region (principal); M51.37 Other intervertebral disc degeneration, lumbosacral region
CPT/HCPCS: 72100